=== PATIENT | male | born 1955 | race Caucasian/White ===

== ENCOUNTER 2021-10-31 15:26 | Observation (INO) | payer OTHER ==
[2021-10-31 16:12] LABS: Absolute Lymphocytes (CBC) 1.4 K/uL (0.7-4.9); Hematocrit 46.6 % (39.6-49.0); Lymphocytes % 11.9 % (15.3-44.8); MPV 6.6 fL (7.6-11.3); RBC Red Blood Cell Count 5.39 M/uL (4.33-5.43)
[2021-10-31 16:16] LABS: Protime INR 1.13
[2021-10-31] MEDS ORDERED: NA CHLORIDE 0.9% 1,000 ML ONE (16:17)
[2021-10-31] MEDS ORDERED: FOLIC ACID 5 MG/ML VIAL ONE (16:17)
[2021-10-31 16:28] LABS: ALT/SGPT 30 U/L (12-78); AST/SGOT 17 U/L (15-37); Alkaline Phosphatase 65 U/L (45-117); BUN Blood Urea Nitrogen 14 mg/dL (7-18); Bicarbonate 28 mmol/L (21-32); Bilirubin Direct 0.2 mg/dL (0-0.2); Bilirubin Total 0.6 mg/dL (0.2-1.0); Glucose Level 97 mg/dL (74-106); Magnesium 2.2 mg/dL (1.8-2.4); NT PRO-BNP 21 pg/mL (<125); Potassium 3.8 mmol/L (3.5-5.1); Protein, Total 6.8 g/dL (6.4-8.2); Sodium Level 137 mmol/L (136-145)
--- NOTE | 2021-10-31 16:29 | RAD REPORT ---
EXAM DESCRIPTION: Marky Single View10/31/2021 4:21 pm CLINICAL HISTORY: cough COMPARISON: none FINDINGS: The lungs appear clear of acute infiltrate. The heart is normal size IMPRESSION: No acute abnormalities displayed
[2021-10-31 16:32] LABS: C-Reactive Protein < 2.90 mg/L (<3.00)
--- NOTE | 2021-10-31 17:07 | RAD REPORT ---
EXAM DESCRIPTION: CT - Head Brain Wo Cont - 10/31/2021 5:00 pm CLINICAL HISTORY: Slurred speech COMPARISON: None TECHNIQUE: Computed axial tomography of the head was obtained. IV contrast was not requested. All CT scans are performed using dose optimization technique as appropriate and may include automated exposure control or mA/KV adjustment according to patient size. FINDINGS: An intracranial bleed is not seen . The ventricles are normal in caliber. No extra-axial fluid collection is noted. Small low-density area within the left frontal lobe may represent an old infarction. to small vessel disease. Fluid within the sinuses/ mastoids is not seen. IMPRESSION: No acute intracranial abnormality is seen. If patient's symptoms persist MRI of the bra in would be recommended.
--- NOTE | 2021-10-31 17:07 | ER ---
Nurse's Notes [facility] Name: Reji Gurera Age: 66 yrs Sex: Male : 1955 Arrival Date: 10/31/2021 Time: 15:[address] Private MD: Diagnosis: Aphasia following cerebral infarction;Cerebral infarction, unspecified Presentation: 10/31 15:29 Chief complaint: EMS states: "the pt is reporting trouble talking X 3 days. he reports jd3 he has this happen before in the past in September. He is A\\T\\O X 4, it just takes him a second to answer with his aphagia.". Coronavirus screen: At this time, the client does not indicate any symptoms associated with coronavirus-19. Ebola Screen: No symptoms or risks identified at this time. Initial Sepsis Screen: Does the patient meet any 2 criteria? No. Patient's initial sepsis screen is negative. Does the patient have a suspected source of infection? No. Patient's initial sepsis screen is negative. Risk Assessment: Do you want to hurt yourself or someone else? Patient reports no desire to harm self or others. Onset of symptoms was October 28, 2021. 15:29 Method Of Arrival: EMS: [facility] jd3 15:29 Acuity: DINESH 3 jd3 Historical: - Allergies: 15:31 "pain medicine recieved after getting teeth pulled"; jd3 - Home Meds: 15:31 None [Active]; jd3 - PMHx: 15:31 None; jd3 - PSHx: 15:31 None; jd3 - Immunization history:: Adult Immunizations up to date, Client reports receiving the 2nd dose of the Covid vaccine, Flu vaccine is up to date. - Social history:: Smoking status: Patient denies any tobacco usage or history of. - Family history:: not pertinent. Screenin:35 Abuse screen: Denies threats or abuse. Nutritional screening: No deficits noted. jd3 Tuberculosis screening: No symptoms or risk factors identified. Fall Risk Ambulatory Aid- None/Bed Rest/Nurse Assist (0 pts). Gait- Normal/Bed Rest/Wheelchair (0 pts) Mental Status- Oriented to own ability (0 pts). Total Soriano Fall Scale indicates No Risk (0-24 pts). 15:35 VAN Screening: Arm Drift: Patient shows no arm weakness. Patient is VAN negative. jd3 Patient has been NPO before screening. The patient is alert, able to follow commands. The patient does not exhibit slurred or garbled speech The patient is exhibiting difficulty speaking. Provider notified of indication for Speech Therapy consult. The patient does not exhibit difficulty understanding words. The patient is able to swallow own secretions with no drooling or need for suction. Patient tolerated one teaspoon of water. No drooling, immediate coughing, gurgling, or clearing of the throat was noted. The patient tolerated 90mL of water. No drooling, immediate coughing, gurgling, or clearing of the throat was noted. The patient passed the bedside swallow screening. Oral medications may be given as ordered. Contact Physician for further diet orders. Assessment: 15:33 General: Appears in no apparent distress. comfortable, Behavior is calm, cooperative, jd3 appropriate for age. Pain: Denies pain. Neuro: Level of Consciousness is awake, alert, obeys commands, Oriented to person, place, time, situation, Clearance Cutter are equal bilaterally Moves all extremities. Full function Gait is steady, Speech with expressive aphasia noted, Facial symmetry appears normal, Pupils are PERRLA, Reports problems talking. Cardiovascular: Denies chest pain, Capillary refill < 3 seconds Patient's skin is warm and dry. Respiratory: Airway is patent Respiratory effort is even, unlabored, Respiratory pattern is regular, symmetrical, Denies cough, shortness of breath. GI: No signs and/or symptoms were reported involving the gastrointestinal system. : No signs and/or symptoms were reported regarding the genitourinary system. EENT: No signs and/or symptoms were reported regarding the EENT system. Derm: Skin is intact, Skin is dry, Skin is normal, Skin temperature is warm. Musculoskeletal: Circulation, motion, and sensation intact. Range of motion: intact in all extremities. 16:30 Reassessment: Patient appears in no apparent distress at this time. No changes from jd3 previously documented assessment. Patient and/or family updated on plan of care and expected duration. Pain level reassessed. Patient is alert, oriented x 3, equal unlabored respirations, skin warm/dry/pink. 17:30 Reassessment: Patient appears in no apparent distress at this time. No changes from jd3 previously documented assessment. Patient and/or family updated on plan of care and expected duration. Pain level reassessed. Patient is alert, oriented x 3, equal unlabored respirations, skin warm/dry/pink. 18:18 Reassessment: Patient appears in no apparent distress at this time. No changes from jd3 previously documented assessment. Patient and/or family updated on plan of care and expected duration. Pain level reassessed. Patient is alert, oriented x 3, equal unlabored respirations, skin warm/dry/pink. awaiting admission. Vital Signs: 15:33 BP 158 / 80; Pulse 87; Resp 18 S; Temp 97.5(TE); Pulse Ox 100% on R/A; Weight 69.85 kg jd3 (R); Height 5 ft. 8 in. (172.72 cm) (R); Pain 0/10; 18:18 BP 151 / 82; Pulse 83; Resp 18 S; Pulse Ox 100% on R/A; jd3 19:45 BP 145 / 78; Pulse 76; Resp 16; Pulse Ox 99% ; ad1 20:48 BP 148 / 82; Pulse 18; Resp 16; Pulse Ox 99% ; ad1 15:33 Body Mass Index 23.42 (69.85 kg, 172.72 cm) jd3 Evelyn Coma Score: 16:51 Eye Response: spontaneous(4). Verbal Response: oriented(5). Motor Response: obeys dee commands(6). Total: 15. NIH Stroke Scale Scores: 15:35 NIHSS Score: 1 jd3 16:51 NIHSS Score: 2 [facility] ED Course: 15:27 Patient arrived in ED. ab2 15:28 Jori Hayes, RN is Primary Nurse. jd3 15:31 Triage completed. jd3 15:33 Arm band placed on. jd3 15:35 Patient has correct armband on for positive identification. Bed in low position. Call j light in reach. Side rails up X2. Adult w/ patient. playground monitor on. Pulse ox on. NIBP on. 15:47 Kiko Sididqi MD is Attending Physician. [facility] 16:05 Inserted saline lock: 18 gauge in right forearm, using aseptic technique. Blood jd3 collected. 16:22 XRAY Chest (1 view) In Process Unspecified. EDMS 17:02 CT Head Brain wo Cont In Process Unspecified. EDMS 17:03 CT Head Angio In Process Unspecified. EDMS 17:03 CT Neck Angio In Process Unspecified. EDMS 17:05 Demetri Werner is Hospitalizing Provider. dee 19:16 No provider procedures requiring assistance completed. Patient admitted, IV remains in jd3 place. Administered Medications: 16:18 Drug: NS 0.9% 1000 ml Route: IV; Rate: 1 bolus; Site: right forearm; jd3 17:00 Follow up: Response: No adverse reaction; IV Status: Completed infusion jd3 16:18 Drug: foLIC Acid 1 mg Route: IVPB; Site: right forearm; jd3 17:00 Follow up: Response: No adverse reaction; IV Status: Completed infusion jd3 18:12 Drug: Aspirin Chewable Tablet 324 mg Route: PO; jd3 19:00 Follow up: Response: No adverse reaction jd3 18:12 Drug: PlaVIX (clopidogrel) 75 mg Route: PO; jd3 19:00 Follow up: Response: No adverse reaction jd3 18:12 Drug: Lipitor (atorvastatin) 20 mg Route: PO; jd3 19:00 Follow up: Response: No adverse reaction j Outcome: 17:07 Decision to Hospitalize by Provider. dee 19:16 Admitted to ER Hold. Please see [facility] for further documentation. jd3 19:16 Condition: stable 19:16 Instructed on the need for admit, Demonstrated understanding of instructions. 21:15 Patient left the ED. trey NIH Stroke Scale - NIH Stroke Score Date: 10/31/2021 Time: 15:35 Total Score = 1 1a. Level of Consciousness (LOC) - 0(Alert) 1b. Level of Consciousness (LOC) (Month \\T\\ Age) - 0(Both) 1c. LOC Commands (Open \\T\\ Closes Eyes/Specialist Employee Labor Relations) - 0(Both) 2. Best Gaze (Lateral Gaze Paresis) - 0(Normal) 3. Visual Field Loss - 0(No visual loss) 4. Facial Palsy - 0(Normal) 5a. Left Arm: Motor (10-second hold) - 0(No drift) 5b. Right Arm: Motor (10-second hold) - 0(No drift) 6a. Left Leg: Motor (5-second hold - always test supine) - 0(No drift) 6b. Right Leg: Motor (5-second hold - always test supine) - 0(No drift) 7. Limb Ataxia (finger/nose \\T\\ heel/siddiqui - test with eyes open) - 0(Absent) 8. Sensory Loss (pinprick arms/legs/face) - 0(Normal) 9. Best Language: Aphasia (description/naming/reading) - 1(Mild to moderate aphasia) 10. Dysarthria (speech clarity - read or repeat words) - 0(Normal) 11. Extinction and Inattention (visual/tactile/auditory/spatial/personal) - 0(No abnormality) Initials: princess NIH Stroke Scale - NIH Stroke Score Date: 10/31/2021 Time: 16:51 Total Score = 2 1a. Level of Consciousness (LOC) - 0(Alert) 1b. Level of Consciousness (LOC) (Month \\T\\ Age) - 0(Both) 1c. LOC Commands (Open \\T\\ Closes Eyes/Specialist Employee Labor Relations) - 0(Both) 2. Best Gaze (Lateral Gaze Paresis) - 0(Normal) 3. Visual Field Loss - 0(No visual loss) 4. Facial Palsy - 0(Normal) 5a. Left Arm: Motor (10-second hold) - 0(No drift) 5b. Right Arm: Motor (10-second hold) - 0(No drift) 6a. Left Leg: Motor (5-second hold - always test supine) - 0(No drift) 6b. Right Leg: Motor (5-second hold - always test supine) - 0(No drift) 7. Limb Ataxia (finger/nose \\T\\ heel/siddiqui - test with eyes open) - 0(Absent) 8. Sensory Loss (pinprick arms/legs/face) - 0(Normal) 9. Best Language: Aphasia (description/naming/reading) - 1(Mild to moderate aphasia) 10. Dysarthria (speech clarity - read or repeat words) - 1(Mild to Moderate) 11. Extinction and Inattention (visual/tactile/auditory/spatial/personal) - 0(No abnormality) Initials: dee Signatures: Dispatcher [employer] Kiko Baez MD MD cha DelToro, Anna, RN RN ad1 Jori Hayes RN RN jd3 Sylvia Potts RN RN bo Bleininger, Alexis ab2 Corrections: (The following items were deleted from the chart) 15:33 15:31 Allergies: No Known Allergies; jd3 jd3 19:16 18:18 Reassessment: Patient appears in no apparent distress at this time. No jd3 changes from previously documented assessment. Patient and/or family updated on plan of care and expected duration. Pain level reassessed. Patient is alert, oriented x 3, equal unlabored respirations, skin warm/dry/pink. jd3 :18 19:18 Response: No adverse reaction; IV Status: Completed infusion jd3 jd3
--- NOTE | 2021-10-31 17:07 | EDPHYS ---
Physician Documentation [facility] Name: Reji Guerra Age: 66 yrs Sex: Male : 1955 Arrival Date: 10/31/2021 Time: 15:[address] Private MD: Kiko Sommer HPI: 10/31 16:51 This 66 yrs old Male presents to ER via EMS with complaints of APHASIA, NOTED dee AFER NAP AT 2PM. 16:51 The patient's problem is reported as dysphasia, expressive aphasia. Onset: The dee symptoms/episode began/occurred today, at 14:00. Duration: The episode is continuous. Context: the episode(s) was witnessed, by a friend, symptoms became apparent upon waking, at 14:00. The symptoms are alleviated by nothing. The symptoms are aggravated by nothing. The patient presents to the emergency department with a speech or higher order brain function problem. Onset: The symptoms/episode began/occurred PT SPOKE TO NO ONE THIS MORNING , TOOK A NAP, WOKE UP 2PM NOTED EXPRESSIVE APHASIA. Context: occurred at home. Associated signs and symptoms: The patient has no apparent associated signs or symptoms. Severity of symptoms: At their worst the symptoms were moderate in the emergency department the symptoms have improved mildly. Associated signs and symptoms: The patient has no apparent associated signs or symptoms. Historical: - Allergies: 15:31 "pain medicine recieved after getting teeth pulled"; jd3 - Home Meds: 15:31 None [Active]; jd3 - PMHx: 15:31 None; jd3 - PSHx: 15:31 None; jd3 - Immunization history:: Adult Immunizations up to date, Client reports receiving the 2nd dose of the Covid vaccine, Flu vaccine is up to date. - Social history:: Smoking status: Patient denies any tobacco usage or history of. - Family history:: not pertinent. ROS: 16:51 Constitutional: Negative for fever, chills, and weight loss, Eyes: Negative for injury, dee pain, redness, and discharge, ENT: Negative for injury, pain, and discharge, Neck: Negative for injury, pain, and swelling, Cardiovascular: Negative for chest pain, palpitations, and edema, Respiratory: Negative for shortness of breath, cough, wheezing, and pleuritic chest pain, Abdomen/GI: Negative for abdominal pain, nausea, vomiting, diarrhea, and constipation, Back: Negative for injury and pain, : Negative for injury, bleeding, discharge, and swelling, MS/Extremity: Negative for injury and deformity, Skin: Negative for injury, rash, and discoloration, Psych: Negative for depression, anxiety, suicide ideation, homicidal ideation, and hallucinations, Allergy/Immunology: Negative for hives, rash, and allergies, Endocrine: Negative for neck swelling, polydipsia, polyuria, polyphagia, and marked weight changes, Hematologic/Lymphatic: Negative for swollen nodes, abnormal bleeding, and unusual bruising. 16:51 Neuro: Positive for speech changes. Exam: 16:51 Constitutional: This is a well developed, well nourished patient who is awake, alert, dee and in no acute distress. Head/Face: Normocephalic, atraumatic. Eyes: Pupils equal round and reactive to light, extra-ocular motions intact. Lids and lashes normal. Conjunctiva and sclera are non-icteric and not injected. Cornea within normal limits. Periorbital areas with no swelling, redness, or edema. ENT: Nares patent. No nasal discharge, no septal abnormalities noted. Tympanic membranes are normal and external auditory canals are clear. Oropharynx with no redness, swelling, or masses, exudates, or evidence of obstruction, uvula midline. Mucous membranes moist. Neck: Trachea midline, no thyromegaly or masses palpated, and no cervical lymphadenopathy. Supple, full range of motion without nuchal rigidity, or vertebral point tenderness. No Meningismus. Chest/axilla: Normal chest wall appearance and motion. Nontender with no deformity. No lesions are appreciated. Cardiovascular: Regular rate and rhythm with a normal S1 and S2. No gallops, murmurs, or rubs. Normal PMI, no JVD. No pulse deficits. Respiratory: Lungs have equal breath sounds bilaterally, clear to auscultation and percussion. No rales, rhonchi or wheezes noted. No increased work of breathing, no retractions or nasal flaring. Abdomen/GI: Soft, non-tender, with normal bowel sounds. No distension or tympany. No guarding or rebound. No evidence of tenderness throughout. Back: No spinal tenderness. No costovertebral tenderness. Full range of motion. Male : Normal genitalia with no discharge or lesions. Skin: Warm, dry with normal turgor. Normal color with no rashes, no lesions, and no evidence of cellulitis. MS/ Extremity: Pulses equal, no cyanosis. Neurovascular intact. Full, normal range of motion. Psych: Awake, alert, with orientation to person, place and time. Behavior, mood, and affect are within normal limits. 17:00 Radiologist reports: SEE REPORT [facility] 17:04 ECG was reviewed by the Attending Physician. [facility] Vital Signs: 15:33 BP 158 / 80; Pulse 87; Resp 18 S; Temp 97.5(TE); Pulse Ox 100% on R/A; Weight 69.85 kg jd3 (R); Height 5 ft. 8 in. (172.72 cm) (R); Pain 0/10; 18:18 BP 151 / 82; Pulse 83; Resp 18 S; Pulse Ox 100% on R/A; jd3 19:45 BP 145 / 78; Pulse 76; Resp 16; Pulse Ox 99% ; ad1 20:48 BP 148 / 82; Pulse 18; Resp 16; Pulse Ox 99% ; ad1 15:33 Body Mass Index 23.42 (69.85 kg, 172.72 cm) jd3 NIH Stroke Scale Scores: 15:35 NIHSS Score: 1 jd3 16:51 NIHSS Score: 2 dee Evelyn Coma Score: 16:51 Eye Response: spontaneous(4). Verbal Response: oriented(5). Motor Response: obeys [facility] commands(6). Total: 15. MDM: 15:47 Patient medically screened. dee 16:59 Differential diagnosis: CVA, TIA, metabolic disorder. Data reviewed: vital signs, [facility] nurses notes, lab test result(s), EKG, radiologic studies, CT scan, plain films. 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 Test interpretation: by ED physician or midlevel provider: ECG, plain radiologic studies. Counseling: I had a detailed discussion with the patient and/or guardian regarding: the historical points, exam findings, and any diagnostic results supporting the discharge/admit diagnosis, lab results, radiology results, the need for further work-up and treatment in the hospital. 17:04 ED course: DR DUTTA , NOT A TPA/TNK CANDIIATE. 10/31 15:49 Order name: Basic Metabolic Panel; Complete Time: 16:48 dee 10/31 15:49 Order name: CBC with Diff; Complete Time: 17:54 [facility] 10/31 15:49 Order name: LFT's; Complete Time: 16:48 dee 10/31 15:49 Order name: Magnesium; Complete Time: 16:48 10/31 15:49 Order name: NT PRO-BNP; Complete Time: 16:48 dee 10/31 15:49 Order name: PT-INR; Complete Time: 16:48 dee 10/31 15:49 Order name: Troponin HS; Complete Time: 16:48 10/31 15:49 Order name: XRAY Chest (1 view); Complete Time: 16:48 [facility] 10/31 15:49 Order name: Sed Rate; Complete Time: 17:54 [facility] 10/31 15:49 Order name: CRP; Complete Time: 16:48 [facility] 10/31 16:18 Order name: SARS-COV-2 RT PCR; Complete Time: 17:54 [facility] 10/31 16:51 Order name: Lipid Profile; Complete Time: 17:54 10/31 19:52 Order name: Urine Dipstick-Ancillary EDAK 10/31 15:49 Order name: EKG; Complete Time: 15:50 [facility] 10/31 15:49 Order name: Cardiac monitoring; Complete Time: 16:05 [facility] 10/31 15:49 Order name: EKG - Nurse/Tech; Complete Time: 16:05 [facility] 10/31 15:49 Order name: IV Saline Lock; Complete Time: 16:06 [facility] 10/31 15:49 Order name: Labs collected and sent; Complete Time: 16:06 [facility] 10/31 15:49 Order name: O2 Per Protocol; Complete Time: 15:52 dee 10/31 15:49 Order name: O2 Sat Monitoring; Complete Time: 15:52 dee 10/31 15:49 Order name: CT Head Brain wo Cont; Complete Time: 17:54 [facility] 10/31 15:49 Order name: CT Head Angio; Complete Time: 17:54 [facility] 10/31 15:49 Order name: CT Neck Angio; Complete Time: 17:54 [facility] EC:04 Rate is 89 beats/min. Rhythm is regular. QRS [place] is Normal. UT interval is normal. QRS dee interval is normal. QT interval is normal. No Q waves. T waves are Normal. No ST changes noted. Clinical impression: Normal ECG and No evidence of ischemia. Interpreted by me. Reviewed by me. Administered Medications: 16:18 Drug: NS 0.9% 1000 ml Route: IV; Rate: 1 bolus; Site: right forearm; jd3 17:00 Follow up: Response: No adverse reaction; IV Status: Completed infusion jd3 16:18 Drug: foLIC Acid 1 mg Route: IVPB; Site: right forearm; jd3 17:00 Follow up: Response: No adverse reaction; IV Status: Completed infusion jd3 18:12 Drug: Aspirin Chewable Tablet 324 mg Route: PO; jd3 19:00 Follow up: Response: No adverse reaction jd3 18:12 Drug: PlaVIX (clopidogrel) 75 mg Route: PO; jd3 19:00 Follow up: Response: No adverse reaction jd3 18:12 Drug: Lipitor (atorvastatin) 20 mg Route: PO; jd3 19:00 Follow up: Response: No adverse reaction jd3 Disposition Summary: 10/31/21 17:07 Hospitalization Ordered Hospitalization Status: Observation dee Provider: Demetri Werner cha Location: Telemetry/MedSurg (observation) dee Condition: Fair dee Problem: new dee Symptoms: have improved dee Bed/Room Type: Standard dee Room Assignment: 224(10/31/21 19:29) Diagnosis - Aphasia following cerebral infarction dee - Cerebral infarction, unspecified dee Forms: - Medication Reconciliation Form dee - SBAR form dee NIH Stroke Scale - NIH Stroke Score Date: 10/31/2021 Time: 15:35 Total Score = 1 1a. Level of Consciousness (LOC) - 0(Alert) 1b. Level of Consciousness (LOC) (Month \\T\\ Age) - 0(Both) 1c. LOC Commands (Open \\T\\ Closes Eyes/Tellers Supervisor) - 0(Both) 2. Best Gaze (Lateral Gaze Paresis) - 0(Normal) 3. Visual Field Loss - 0(No visual loss) 4. Facial Palsy - 0(Normal) 5a. Left Arm: Motor (10-second hold) - 0(No drift) 5b. Right Arm: Motor (10-second hold) - 0(No drift) 6a. Left Leg: Motor (5-second hold - always test supine) - 0(No drift) 6b. Right Leg: Motor (5-second hold - always test supine) - 0(No drift) 7. Limb Ataxia (finger/nose \\T\\ heel/siddiqui - test with eyes open) - 0(Absent) 8. Sensory Loss (pinprick arms/legs/face) - 0(Normal) 9. Best Language: Aphasia (description/naming/reading) - 1(Mild to moderate aphasia) 10. Dysarthria (speech clarity - read or repeat words) - 0(Normal) 11. Extinction and Inattention (visual/tactile/auditory/spatial/personal) - 0(No abnormality) Initials: princess NIH Stroke Scale - NIH Stroke Score Date: 10/31/2021 Time: 16:51 Total Score = 2 1a. Level of Consciousness (LOC) - 0(Alert) 1b. Level of Consciousness (LOC) (Month \\T\\ Age) - 0(Both) 1c. LOC Commands (Open \\T\\ Closes Eyes/Tellers Supervisor) - 0(Both) 2. Best Gaze (Lateral Gaze Paresis) - 0(Normal) 3. Visual Field Loss - 0(No visual loss) 4. Facial Palsy - 0(Normal) 5a. Left Arm: Motor (10-second hold) - 0(No drift) 5b. Right Arm: Motor (10-second hold) - 0(No drift) 6a. Left Leg: Motor (5-second hold - always test supine) - 0(No drift) 6b. Right Leg: Motor (5-second hold - always test supine) - 0(No drift) 7. Limb Ataxia (finger/nose \\T\\ heel/siddiqui - test with eyes open) - 0(Absent) 8. Sensory Loss (pinprick arms/legs/face) - 0(Normal) 9. Best Language: Aphasia (description/naming/reading) - 1(Mild to moderate aphasia) 10. Dysarthria (speech clarity - read or repeat words) - 1(Mild to Moderate) 11. Extinction and Inattention (visual/tactile/auditory/spatial/personal) - 0(No abnormality) Initials: dee Signatures: Dispatcher [employer] EDMS Nichelle Mckee RN RN mw Anderson, Corey, MD MD cha Davies, Jonathon, RN RN jd3 Corrections: (The following items were deleted from the chart) 15:33 15:31 Allergies: No Known Allergies; jd3 jd3 16:18 16:07 COVID 19 CPL+MR.LAB.BRZ ordered. EDMS EDMS 17:06 17:01 CT-STROKE BRAIN W/O CONTRAST+CT.RAD.BRZ ordered. EDMS EDMS 19:29 17:07 dee mw
--- NOTE | 2021-10-31 17:13 | RAD REPORT ---
EXAM DESCRIPTION: Brigette Angio10/31/2021 5:01 pm CLINICAL HISTORY: Slurred speech COMPARISON: None TECHNIQUE: 50 cc Isovue 370 was administered intravenously. 3D MIP reconstruction performed All CT scans are performed using dose optimization technique as appropriate and may include automated exposure control or mA/KV adjustment according to patient size. FINDINGS: The common carotid, left internal carotid and external carotid arteries are normal caliber . Minimal calcified plaque distal right internal carotid artery. The vertebral arteries are codominant. No plaque is seen. No dissection. IMPRESSION: Minimal plaque left internal carotid artery. No significant abnormality displayed NASCET criteria used. Mild 0-49% stenosis Moderate 50-69% stenosis Severe 70-99% stenosis
--- NOTE | 2021-10-31 17:17 | RAD REPORT ---
EXAM DESCRIPTION: CTHead angio10/31/2021 5:01 pm CLINICAL HISTORY: Slurred speech COMPARISON: None TECHNIQUE: CT angiogram of the head was obtained. 3D MIPS reconstruction performed. All CT scans are performed using dose optimization technique as appropriate and may include automated exposure control or mA/KV adjustment according to patient size. FINDINGS: The basilar, internal carotid, anterior cerebral, middle cerebral and posterior cerebral a rteries are normal caliber. An aneurysm is not seen. origin left posterior cerebral artery A significant stenosis is not noted. IMPRESSION: Unremarkable CT angiogram head.
[2021-10-31] MEDS ORDERED: ASPIRIN 81 MG CHEWABLE TABLET ONE (18:08)
[2021-10-31] MEDS ORDERED: ATORVASTATIN 20 MG TAB ONE (18:09)
[2021-10-31] MEDS ORDERED: CLOPIDOGREL 75 MG TABLET ONE (18:09)
[2021-10-31 19:51] LABS: Urine Blood Negative (Negative); Urine Glucose Negative (Negative); Urine Protein Negative (Negative)
[2021-10-31] MEDS ORDERED: ACETAMINOPHEN 500 MG TAB PO PRN (21:14)
[2021-10-31] MEDS ORDERED: ATORVASTATIN 40 MG TAB PO SCH (21:14)
[2021-10-31] MEDS ORDERED: ONDANSETRON 4 MG/2 ML VIAL IV PRN (21:14)
[2021-10-31 21:20] VITALS: BMI 24.0
--- NOTE | 2021-10-31 21:20 | P.HP ---
Certification for Inpatient Patient admitted to: Observation With expected LOS: <2 Midnights Patient will require the following post-hospital care: None Practitioner: I am a practitioner with admitting privileges, knowledge of patient current condition, hospital course, and medical plan of care. Services: Services provided to patient in accordance with Admission requirements found in Title 42 Section 412.3 of the Code of Federal Regulations Patient History Date of Service: 10/31/21 Reason for admission: Expressive Aphasia History of Present Illness: Patient is a 66-year-old male with no past medical history who presented to the ED with complaints of aphasia. VAN negative. he states for the past 4-6 weeks, he has been having difficulty articulating the words he is trying to say. He denies any new weakness, slurred speech, paralysis, numbness. Denies family history of stroke. Expressive aphasia is evident during examination. Neurological exam within normal limits otherwise. CT head and CT head/neck angiogram both negative for acute processes. Dr. Patel was notified. labs significant for white blood cell count of 11.7 and platelet count of 735. He was given 1 L of fluid, 1 mg folic acid, 324 mg aspirin, 75 mg Plavix, 20 mg atorvastatin. We will admit patient for observation for further evaluation and treatment. Allergies No Known Allergies Allergy (Unverified 10/31/21 20:24) Home medications list reviewed: Yes (N/A) - Past Medical/Surgical History Diabetic: No Past Medical History: Patient denies medical history Past Surgical History: Patient denies surgical history Psychosocial/ Personal History: Patient lives at home by himself. 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 - Family History Mother -: Hypertension Sister -: Hypertension Father -: Other (see notes) (Alzheimer's) - Social History Smoking Status: Never smoker Alcohol use: Yes CD- Drugs: No Caffeine use: Yes Place of Residence: Home Review of Systems 10-point ROS is otherwise unremarkable Neurological: Change in Speech (Expressive aphasia) Physical Examination - Physical Exam General: Alert, In no apparent distress, Oriented x3, Cooperative HEENT: Atraumatic, Normocephalic, PERRLA, Mucous membr. moist/pink, EOMI, Sclerae nonicteric Neck: Supple, 2+ carotid pulse no bruit, No LAD, Without JVD or thyroid abnormality Respiratory: Clear to auscultation bilaterally, Normal air movement Cardiovascular: No edema, Regular rate/rhythm, Normal S1 S2 Gastrointestinal: Normal bowel sounds, Soft and benign, No tenderness Musculoskeletal: No tenderness Integumentary: No rashes Neurological: Normal gait, Normal strength at 5/5 x4 extr, Normal tone, Sensation intact, Cranial nerves 3-12 intact, Normal reflexes 2+, Normal affect, Abnormal speech (Expressive aphasia) - Studies Laboratory Data (last 24 hrs) 10/31/21 16:01: Triglycerides 109, Cholesterol 160, HDL Cholesterol 47, Cholesterol/HDL Ratio 3.40 10/31/21 16:01: PT 12.5, INR 1.13 10/31/21 16:01: WBC 11.7 H, Hgb 15.9, Hct 46.6, Plt Count 735 H 10/31/21 16:01: Sodium 137, Potassium 3.8, BUN 14, Creatinine 0.89, Glucose 97, Magnesium 2.2, Total Bilirubin 0.6, AST 17, ALT 30, Alkaline Phosphatase 65 Assessment and Plan - Problems (Diagnosis) (1) Expressive aphasia Current Visit: Yes Status: Acute (2) Thrombocytosis, unspecified Current Visit: Yes Status: Acute - Plan -Expressive aphasia noted on exam. Patient states it has been present for 4 to 6 weeks. no other neurologic deficits. -CT head and CTA negative for CVA. Dr. Patel notified. -Platelet count elevated at 735. Received Plavix in the ED. Monitor -Patient received folic acid, aspirin, atorvastatin and Plavix in the ED. We will continue -Patient is otherwise healthy and takes no medications on a daily basis -monitor patient overnight -Lovenox for DVT prophylax Discharge Plan: Home Plan to discharge in: 24 Hours - Advance Directives Does patient have a Living Will: No Does patient have a Durable POA for Healthcare: No - Code Status/Comfort Care Code Status Assessed: Yes (Full) Critical Care: No Time Spent Managing Pts Care (In Minutes): 50
[2021-10-31 21:46] LABS: Urine Appearance Clear (Clear); Urine Bilirubin Negative (Negative); Urine Blood Negative (Negative); Urine Color Yellow (Yellow); Urine Glucose Negative (Negative); Urine Protein Negative (Negative); Urine Specific Gravity 1.015 (1.005-1.030); Urine Urobilinogen 0.2 mg/dL (0.2-1.0)
[2021-10-31 22:00] LABS: Urine Microscopic Reflex NO UMIC
[2021-11-01 03:28] LABS: Absolute Lymphocytes (CBC) 1.6 K/uL (0.7-4.9); Hematocrit 43.5 % (39.6-49.0); MPV 6.5 fL (7.6-11.3); RBC Red Blood Cell Count 5.04 M/uL (4.33-5.43)
[2021-11-01 04:12] LABS: BUN Blood Urea Nitrogen 12 mg/dL (7-18); Bicarbonate 25 mmol/L (21-32); Glucose Level 96 mg/dL (74-106); Magnesium 2.1 mg/dL (1.8-2.4); Phosphorus 3.2 mg/dL (2.5-4.9); Potassium 3.7 mmol/L (3.5-5.1); Sodium Level 140 mmol/L (136-145)
[2021-11-01] MEDS ORDERED: ENOXAPARIN 40 MG/0.4 ML SQ SCH (09:00)
[2021-11-01] MEDS ORDERED: FOLIC ACID 1 MG TABLET PO SCH (09:00)
[2021-11-01] MEDS ORDERED: PNEUMOCOCCAL VACCINE 0.5 ML IMVAC ONE (09:00)
[2021-11-01] MEDS ORDERED: CLOPIDOGREL 75 MG TABLET PO SCH (09:00)
[2021-11-01 09:51] VITALS: O2SAT 100
[2021-11-01 12:10] VITALS: BP 142/86; TEMP 97.6
--- NOTE | 2021-11-01 14:01 | P.PN ---
Subjective Date of Service: 11/01/21 Chief Complaint: Expressive Aphasia Patient with expressive aphasia. He feels frustrated. He stated he is able to understand and process words but he is not able to verbalize what he wants to say. It appears his aphasia is intermittent and intermittently able to express some words. Physical Examination - Vital Signs Temperature: 97.6 F Blood Pressure: 142/86 Pulse: 89 Respirations: 18 Pulse Ox (%): 99 - Studies Laboratory Data (last 24 hrs) 10/31/21 16:01: Triglycerides 109, Cholesterol 160, HDL Cholesterol 47, Cholesterol/HDL Ratio 3.40 10/31/21 16:01: PT 12.5, INR 1.13 10/31/21 16:01: WBC 11.7 H, Hgb 15.9, Hct 46.6, Plt Count 735 H 10/31/21 16:01: Sodium 137, Potassium 3.8, BUN 14, Creatinine 0.89, Glucose 97, Magnesium 2.2, Total Bilirubin 0.6, AST 17, ALT 30, Alkaline Phosphatase 65 Assessment And Plan - Current Problems (Diagnosis) (1) Expressive aphasia Current Visit: Yes Status: Acute (2) Thrombocytosis, unspecified Current Visit: Yes Status: Acute - Plan Physical Exam General: Alert, In no apparent distress, Oriented x3, Cooperative HEENT:PERRLA, Mucous membr. moist/pink, EOMI, Sclerae nonicteric Neck: Supple, 2+ carotid pulse no bruit, Without JVD. Respiratory: Clear to auscultation bilaterally, Normal air movement Cardiovascular: No edema, Regular rate/rhythm, Normal S1 S2 Gastrointestinal: Normal bowel sounds, Soft and benign, No tenderness Musculoskeletal: No tenderness Integumentary: No rashes Neurological: Normal gait, Normal strength at 5/5 x4 extr, Normal tone, Sensation intact, Cranial nerves 3-12 intact, Normal reflexes 2+, Normal affect, Expressive aphasia. Diagnosis: Exppressive aphasia Plan: Case discussed with Dr. Patel. Differential diagnosis will be Primary progressive aphasia versus acute CVA. Patient will need MRI of the brain with contrast. CTA unremarkable. Aspirin, Plavix, Lipitor. Folic acid Speech therapy consult. Dr. Patel to see patient.
--- NOTE | 2021-11-01 15:30 | P.DS ---
Admission Date: 10/31/21 Discharge Date: 11/01/21 Disposition: ROUTINE DISCHARGE Discharge Condition: FAIR Reason for Admission: Expressive Aphasia - Problems (1) Expressive aphasia Status: Acute (2) Thrombocytosis, unspecified Status: Acute Brief History of Present Illness: Patient is a 66-year-old male with no past medical history who presented to the ED with complaints of aphasia. He states for the past 4-6 weeks, he has been having difficulty articulating the words he is trying to say. He denies any new weakness, slurred speech, paralysis, numbness. Denies family history of stroke. Expressive aphasia is evident during examination. Neurological exam within normal limits otherwise. CT head and CT head/neck angiogram both negative for acute processes. Dr. Patel was notified. labs significant for white blood cell count of 11.7 and platelet count of 735. He was given 1 L of fluid, 1 mg folic acid, 324 mg aspirin, 75 mg Plavix, 20 mg atorvastatin. Patient admitted for further management. Hospital Course: Patient placed under observation on the medical floor. No changes in expressive aphasia. Case discussed with Dr. 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 MRI of the brain is not available over the weekend. Patient would not stay anymore in the hospital for an MRI to be done on Wednesday. Dr. Patel informed and he plans to follow-up with the patient on Wednesday and arrange for EEG and MRI after which patient to follow-up with him in the office. Meanwhile he is discharged with aspirin, Plavix, Lipitor and folic acid. Patient informed of the follow-up with Dr. Patel on Wednesday11/03/2021. Vital Signs/Physical Exam: Temp Pulse Resp BP Pulse Ox 97.6 F 89 18 142/86 H 99 11/01/21 14:07 11/01/21 14:07 11/01/21 14:07 11/01/21 14:07 11/01/21 14:07 General: Alert, In no apparent distress, Oriented x3 HEENT: Mucous membr. moist/pink Neck: JVD not distended Respiratory: Clear to auscultation bilaterally, Normal air movement Cardiovascular: No edema, Regular rate/rhythm, No murmurs Gastrointestinal: Soft and benign, Non-distended Musculoskeletal: No swelling Integumentary: No rashes Neurological: Normal strength at 5/5 x4 extr, Other (Expressive aphasia) Laboratory Data at Discharge: WBC 10.9 K/uL (4.3-10.9) 11/01/21 02:55 Hgb 15.0 g/dL (13.6-17.9) 11/01/21 02:55 Hct 43.5 % (39.6-49.0) 11/01/21 02:55 Plt Count 675 K/uL (152-406) H 11/01/21 02:55 PT 12.5 SECONDS (9.5-12.5) 10/31/21 16:01 INR 1.13 10/31/21 16:01 Sodium 140 mmol/L (136-145) 11/01/21 02:55 Potassium 3.7 mmol/L (3.5-5.1) 11/01/21 02:55 BUN 12 mg/dL (7-18) 11/01/21 02:55 Creatinine 0.76 mg/dL (0.55-1.3) 11/01/21 02:55 Glucose 96 mg/dL (74-106) 11/01/21 02:55 Phosphorus 3.2 mg/dL (2.5-4.9) 11/01/21 02:55 Magnesium 2.1 mg/dL (1.8-2.4) 11/01/21 02:55 Total Bilirubin 0.6 mg/dL (0.2-1.0) 10/31/21 16:01 AST 17 U/L (15-37) 10/31/21 16:01 ALT 30 U/L (12-78) 10/31/21 16:01 Alkaline Phosphatase 65 U/L (45-117) 10/31/21 16:01 Triglycerides 109 mg/dL (<150) 10/31/21 16:01 Cholesterol 160 mg/dL (<200) 10/31/21 16:01 HDL Cholesterol 47 mg/dL (40-60) 10/31/21 16:01 Cholesterol/HDL Ratio 3.40 10/31/21 16:01 Home Medications: Aspirin [Aspirin EC 81 MG] 81 mg PO DAILY #30 tablet. 11/01/21 Atorvastatin Calcium [Lipitor] 40 mg PO BEDTIME #30 tab 11/01/21 Clopidogrel Bisulfate [Plavix*] 75 mg PO DAILY #30 tablet 11/01/21 Folic Acid 1 mg PO DAILY #30 tablet 11/01/21 New Medications: Aspirin [Aspirin EC 81 MG] 81 mg PO DAILY #30 tablet. Folic Acid 1 mg PO DAILY #30 tablet Atorvastatin Calcium [Lipitor] 40 mg PO BEDTIME #30 tab Clopidogrel Bisulfate [Plavix*] 75 mg PO DAILY #30 tablet Diet: AHA Activity: Ad tato Followup: Shilo Patel MD [ASSOCIATE-ACTIVE - CAN ADMIT] - 2-3 Days (Please call office at [phone] on Wednesday11/03/2021 for arrangement for MRI of the brain with IV contrast and EEG, and for office appointment.) Charlie Smith MD [Primary Care Provider] - 1-2 Weeks (call to schedule an appointment )
== END 2021-11-01 16:50 | disposition home or self-care (01) ==
LOC: ER 15:26 → ERHOLD 20:23 → 2ND 20:28
PROVIDERS: ADMIT Internal Medicine; ATTEND Internal Medicine
DX: R47.01 Aphasia (principal); D75.839 Thrombocytosis, unspecified; Z20.822 Contact with and (suspected) exposure to COVID-19; Z82.49 Family history of ischemic heart disease and other diseases of the circulatory system; Z82.0 Family history of epilepsy and other diseases of the nervous system
CPT/HCPCS: 96365; 93005; 85025 ×2; 80048 ×2; 36415; 83735 ×2; 84100; 85610; 80061; 80076; 85652; 84443; 81003 ×2; 84484; 84439; 83880; 86140; 70450; 70496; 70498; 71045; 99285; U0003; Q9967; J1650; J7030; G0378 ×3